=== PATIENT | female | born 1940 | race African-American/Black ===

== ENCOUNTER → 2017-03-01 | Outpatient (CLI) | payer MEDICARE, OTHER ==
[~2017-03-01] MED LIST: BUTAPT PO; CITA-30 PO; HYDR25TA4 OR; LISI-206; MET50T PO; WARF4TAB33 PO; WARF5TAB71 PO; ZOLP10TA OR
[2017-03-01 16:24] LABS: Basophils # (auto) 0 uL; Eosinophils # (auto) 0.1 uL; Hematocrit 37.9 % (36.0-46.0); Hemoglobin 12.6 g/dL (12.2-16.2); Lymphocytes # (auto) 0.9 uL; Lymphocytes % (auto) 13.5 % (10.0-50.0); Mean Corpuscular Hemoglobin 31.6 pg (28.0-32.0); Mean Corpuscular Hgb Conc. 33.4 g/dL (32.0-36.0); Mean Corpuscular Volume 94.7 fL (80.0-100.0); Mean Platelet Volume 9.2 fL (7.4-10.4); Monocytes # (auto) 0.4 uL; Monocytes % (auto) 5.9 % (0.0-12.0); Neutrophils # (auto) 5.3 uL; Neutrophils % (auto) 78.6 % (37.0-80.0); Platelet Count (auto) 205 10^3/uL (140-450); Red Cell Distribution Width 16.4 % (11.6-16.0); White Blood Cell 6.8 10^3/uL (4.4-10.8)
[2017-03-01 16:37] LABS: Albumin 2.4 g/dL (3.4-5.0); BUN/Creatinine Ratio 19.5; Calcium 8.6 mg/dL (8.5-10.1); Potassium 4.1 mmol/L (3.5-5.1); Total Protein 7.1 g/dL (6.4-8.2)
[2017-03-01 16:38] LABS: Bilirubin, Direct 0.4 mg/dL (0-0.2)
== END | disposition home or self-care (01) ==
LOC: LAB 14:34
PROVIDERS: ATTEND Internal Medicine Cardiovascular Disease
DX: I10 Essential (primary) hypertension (principal); E78.00 Pure hypercholesterolemia, unspecified; K74.1 Hepatic sclerosis; E11.9 Type 2 diabetes mellitus without complications; E03.9 Hypothyroidism, unspecified; D64.9 Anemia, unspecified; E55.9 Vitamin D deficiency, unspecified; N39.0 Urinary tract infection, site not specified
CPT/HCPCS: 36415; 80048; 80061; 80076; 83036; 84443; 85025

== ENCOUNTER 2017-03-06 12:29 | Inpatient (IN) | payer MEDICARE, MEDICAID ==
[~2017-03-06] VITALS: Ht 175.3 cm; Wt 78.0 kg
[2017-03-06] MEDS ORDERED: SODIUM CHLORIDE 0.9% 1,000 ML IVB ONE (13:04)
[2017-03-06] MEDS ORDERED: SODIUM CHLORIDE 0.9% 1,000 ML IV ONE ×2 (13:15→19:00)
[2017-03-06 13:37] LABS: Basophils # (auto) 0 uL; Basophils % (auto) 0.1 % (0.0-2.0); Eosinophils # (auto) 0.1 uL; Eosinophils % (auto) 1.3 % (0.0-7.0); Hematocrit 35.2 % (36.0-46.0); Hemoglobin 11.6 g/dL (12.2-16.2); Lymphocytes # (auto) 1.9 uL; Lymphocytes % (auto) 17.5 % (10.0-50.0); Mean Corpuscular Hemoglobin 31.5 pg (28.0-32.0); Mean Corpuscular Volume 95.5 fL (80.0-100.0); Mean Platelet Volume 8.5 fL (7.4-10.4); Monocytes % (auto) 9.1 % (0.0-12.0); Neutrophils # (auto) 7.7 uL; Platelet Count (auto) 303 10^3/uL (140-450); White Blood Cell 10.7 10^3/uL (4.4-10.8)
[2017-03-06 14:00] LABS: Albumin 1.9 g/dL (3.4-5.0); Alkaline Phosphatase 137 U/L (45-117); Anion Gap 14 (5-15); Aspartate Aminotransferase 17 U/L (15-37); BUN/Creatinine Ratio 13.5; Bilirubin, Total 0.9 mg/dL (0.2-1.0); Blood Urea Nitrogen 26 mg/dL (7-18); Carbon Dioxide 20 mmol/L (21-32); Chloride 103 mmol/L (98-107); GFR African American 33 mL/min; GFR Non-African American 27 mL/min; Glucose 170 mg/dL (74-106); Potassium 3.8 mmol/L (3.5-5.1); Sodium 137 mmol/L (136-145)
[2017-03-06 14:01] LABS: Lactic Acid w/Reflex 4.1 mmol/L (0.4-2.0)
[2017-03-06 14:09] LABS: Partial Thromboplastin Time 26.6 sec (22.64-33.71)
[2017-03-06 14:11] LABS: INR 1.23 (0.9-1.15); Prothrombin Time 13.4 sec (9.37-12.3)
[2017-03-06] MEDS ORDERED: ACETAMINOPHEN 325 MG TAB PO ONE ×2 (14:15→23:30)
[2017-03-06 14:17] LABS: REFLEX LACTIC ACID YES OR NO YES
[2017-03-06] MEDS ORDERED: AMLO10TA2 PO (14:24)
[2017-03-06] MEDS ORDERED: GABA-497 PO (14:24)
[2017-03-06] MEDS ORDERED: ZOLP10TA6 PO (14:24)
[2017-03-06] MEDS ORDERED: CLO01T PO (14:24)
[2017-03-06] MEDS ORDERED: LOSA100T27 PO (14:24)
[2017-03-06] MEDS ORDERED: MULTTAB99 PO (14:24)
[2017-03-06] MEDS ORDERED: DABI75CA3 PO (14:24)
[2017-03-06] MEDS ORDERED: AMIT50TA3 PO (14:24)
[2017-03-06] MEDS ORDERED: ATE50T PO (14:24)
[2017-03-06] MEDS ORDERED: NITROGLYCERIN 0.4 MG SL TAB SL PRN (15:30)
[2017-03-06] MEDS ORDERED: MORPHINE SULF INJ 2 MG/ML SYRINGE 1ML IV PRN (15:30)
[2017-03-06] MEDS ORDERED: VANCOMYCIN PER PHARMACY 0 MG IV SCH (15:30)
[2017-03-06] MEDS ORDERED: cefTRIAXone 1GM/50ML D5W 50 ML IV ONE (15:30)
[2017-03-06 15:52] LABS: Urine Blood Negative /uL (Negative); Urine Color Yellow (Yellow); Urine Glucose Normal (Normal); Urine Hyaline Cast MANY /lpf (0 - 2); Urine Ketone Negative (Negative); Urine Mucus FEW (None Seen); Urine Nitrite Negative (Negative); Urine RBC <1 /hpf (0 - 4); Urine Squamous Epithelial Cell FEW /hpf (<5); Urine pH 5.5 (5.0-8.0)
[2017-03-06] MEDS: MULTIPLE VITAMIN TAB PO SCH (16:05)
[2017-03-06] MEDS ORDERED: VANCOMYCIN 1GM/250ML D5W 250 ML IV ONE (16:15)
[2017-03-06 16:40] LABS: Urine Bilirubin NEGATIVE (Negative)
[2017-03-06] MEDS: SODIUM CHLORIDE 0.9% 1,000 ML IV SCH (17:13)
[2017-03-06] MEDS: APIXABAN 2.5 MG TAB PO SCH (23:02)
[2017-03-07] MEDS: SODIUM CHLORIDE 0.9% 1,000 ML IV SCH (05:21)
[2017-03-07] MEDS ORDERED: KETOROLAC TROMETH 30 MG/ML 1ML VIAL ONE (05:27)
[2017-03-07] MEDS ORDERED: KETOROLAC TROMETH 30 MG/ML 1ML VIAL IV PRN (05:30)
[2017-03-07 06:50] LABS: Basophils # (auto) 0 uL; Basophils % (auto) 0.4 % (0.0-2.0); Eosinophils # (auto) 0.1 uL; Eosinophils % (auto) 1.4 % (0.0-7.0); Hemoglobin 9.9 g/dL (12.2-16.2); Lymphocytes # (auto) 1.5 uL; Lymphocytes % (auto) 19.4 % (10.0-50.0); Mean Corpuscular Hemoglobin 31.9 pg (28.0-32.0); Mean Corpuscular Hgb Conc. 33.2 g/dL (32.0-36.0); Mean Corpuscular Volume 96.2 fL (80.0-100.0); Mean Platelet Volume 8.4 fL (7.4-10.4); Monocytes # (auto) 0.9 uL; Monocytes % (auto) 11.2 % (0.0-12.0); Neutrophils # (auto) 5.3 uL; Neutrophils % (auto) 67.6 % (37.0-80.0); Platelet Count (auto) 281 10^3/uL (140-450); Red Cell Distribution Width 18.7 % (11.6-16.0); White Blood Cell 7.9 10^3/uL (4.4-10.8)
[2017-03-07 07:04] LABS: BUN/Creatinine Ratio 16.9; Calcium 7.3 mg/dL (8.5-10.1); Potassium 3.4 mmol/L (3.5-5.1)
[2017-03-07] MEDS ORDERED: cefTRIAXone 1GM/50ML D5W 50 ML IV SCH (09:00)
[2017-03-07] MEDS: MULTIPLE VITAMIN TAB PO SCH (09:19)
[2017-03-07] MEDS: APIXABAN 2.5 MG TAB PO SCH ×2 (09:19→21:52)
[2017-03-07 10:00] VITALS: BP 118/72
[2017-03-07] MEDS: ACETAMINOPHEN 325 MG TAB PO PRN ×2 (12:06→19:44)
[2017-03-07 13:00] VITALS: BP 123/80
[2017-03-07] MEDS: SODIUM BICARBONATE 50ML VIAL 50 ML in D5W/SOD CHL 0.45%/KCL 20MEQ 1,000 ML IV SCH (13:42)
[2017-03-07] MEDS ORDERED: ALPRAZolam 0.25 MG TAB PO PRN (16:00)
[2017-03-07 16:42] VITALS: BP 168/75
[2017-03-07] MEDS ORDERED: VANCOMYCIN 1GM/250ML D5W 250 ML IV SCH (17:00)
[2017-03-07 18:30] VITALS: BP 121/68
[2017-03-07] MEDS: ATORVASTATIN 20 MG TAB PO SCH (21:52)
[2017-03-07] MEDS: HYDROcodone-ACET 5/325MG TAB PO PRN (21:57)
[2017-03-07 22:00] VITALS: BP 109/68
[2017-03-08] MEDS: SODIUM BICARBONATE 50ML VIAL 50 ML in D5W/SOD CHL 0.45%/KCL 20MEQ 1,000 ML IV SCH ×3 (00:20→13:34)
[2017-03-08 05:00] VITALS: BP 134/78
[2017-03-08] MEDS: ACETAMINOPHEN 325 MG TAB PO PRN ×2 (06:22→20:58)
[2017-03-08 08:47] LABS: Albumin 1.9 g/dL (3.4-5.0); BUN/Creatinine Ratio 17.9; Bilirubin, Total 0.5 mg/dL (0.2-1.0); Calcium 7.7 mg/dL (8.5-10.1); Phosphorus 2.4 mg/dL (2.5-4.90); Potassium 3.4 mmol/L (3.5-5.1); Total Protein 5.9 g/dL (6.4-8.2)
[2017-03-08 09:00] VITALS: BP 118/70
[2017-03-08] MEDS: HYDROcodone-ACET 5/325MG TAB PO PRN ×4 (09:22→22:38)
[2017-03-08] MEDS: APIXABAN 2.5 MG TAB PO SCH ×2 (09:23→22:38)
[2017-03-08] MEDS: MULTIPLE VITAMIN TAB PO SCH (09:23)
[2017-03-08] MEDS ORDERED: POTASSIUM CHL 20 Meq TABLET PO ONE (12:30)
[2017-03-08 17:00] VITALS: BP 136/77
[2017-03-08 22:00] VITALS: BP 142/69
[2017-03-08] MEDS: ATORVASTATIN 20 MG TAB PO SCH (22:38)
[2017-03-09 05:00] VITALS: BP 137/80
[2017-03-09] MEDS: SODIUM BICARBONATE 50ML VIAL 50 ML in D5W/SOD CHL 0.45%/KCL 20MEQ 1,000 ML IV SCH (06:00)
[2017-03-09] MEDS: ACETAMINOPHEN 325 MG TAB PO PRN ×2 (06:12→13:08)
[2017-03-09 07:45] LABS: BUN/Creatinine Ratio 14.8; Calcium 7.5 mg/dL (8.5-10.1); Potassium 3.7 mmol/L (3.5-5.1)
[2017-03-09 08:00] VITALS: BP 137/80
[2017-03-09 09:30] VITALS: BP 144/83
[2017-03-09] MEDS: MULTIPLE VITAMIN TAB PO SCH (09:46)
[2017-03-09] MEDS: APIXABAN 2.5 MG TAB PO SCH (09:46)
[2017-03-09] MEDS: HYDROcodone-ACET 5/325MG TAB PO PRN (09:47)
[2017-03-09] MEDS ORDERED: METOPROLOL TARTRATE 25 MG TAB PO SCH (10:00)
[2017-03-10 19:07] LABS: Vitamin D-2 25-Hydroxy 1.2 ng/mL (.)
== END 2017-03-09 14:25 | DRG 682 ==
LOC: ER 12:29 → TELE 12:30 → TELE-WESTW 03-07 09:11
PROVIDERS: ADMIT Internal Medicine; ATTEND Internal Medicine
DX: N17.0 Acute kidney failure with tubular necrosis (principal); E43 Unspecified severe protein-calorie malnutrition; E87.2 Acidosis; I13.0 Hypertensive heart and chronic kidney disease with heart failure and stage 1 through stage 4 chronic kidney disease, or unspecified chronic kidney disease; I50.32 Chronic diastolic (congestive) heart failure; N18.3 Chronic kidney disease, stage 3 (moderate); I48.91 Unspecified atrial fibrillation; F02.80 Dementia in other diseases classified elsewhere, unspecified severity, without behavioral disturbance, psychotic disturbance, mood disturbance, and anxiety; E86.0 Dehydration; G30.9 Alzheimer's disease, unspecified; D64.9 Anemia, unspecified; G43.909 Migraine, unspecified, not intractable, without status migrainosus; I48.0 Paroxysmal atrial fibrillation; F32.9 Major depressive disorder, single episode, unspecified; M19.90 Unspecified osteoarthritis, unspecified site; I95.9 Hypotension, unspecified; Z79.899 Other long term (current) drug therapy; Z68.25 Body mass index [BMI] 25.0-25.9, adult
CPT/HCPCS: 36415; 51702; 70450; 71010; 76775; 80048; 80053; 80202; 80307; 81001; 82306; 82570; 83605; 83735; 83970; 84100; 84156; 84300; 84484; 84550; 85025; 85610; 85730; 87040; 87077; 87086; 87186; 93005; 93306; 94761; 96361; 96365; 96375; 97116; 97163; 97530; J0696; J1885

== ENCOUNTER 2017-04-28 10:23 | Emergency (ER) | payer MEDICARE, MEDICAID ==
[~2017-04-28] VITALS: Ht 152.4 cm; Wt 45.4 kg
[~2017-04-28 10:23] MED LIST changes: +AMIT50TA3 PO; +AMLO10TA2 PO; +ATE50T PO; -BUTAPT PO; -CITA-30 PO; +CLO01T PO; +DABI75CA3 PO; +GABA-497 PO; -HYDR25TA4 OR; -LISI-206; +LOSA100T27 PO; -MET50T PO; +MULTTAB99 PO; -WARF4TAB33 PO; -WARF5TAB71 PO; +ZOLP10TA6 PO
[2017-04-28 10:25] VITALS: BP 0/0
[2017-04-28] MEDS ORDERED: CALCIUM CHLOR(10%) 100MG/ML 10ML SYRINGE IV ONE (16:47)
[2017-04-28] MEDS ORDERED: EPINEPHrine HCL 1 MG/10 ML SYRG IV ONE (16:47)
== END 2017-04-28 16:00 | disposition expired ==
LOC: ER 10:23 → EDBD 10:23 → ER 16:00
DX: I46.9 Cardiac arrest, cause unspecified (principal); I48.91 Unspecified atrial fibrillation; G30.9 Alzheimer's disease, unspecified; I12.9 Hypertensive chronic kidney disease with stage 1 through stage 4 chronic kidney disease, or unspecified chronic kidney disease; N18.9 Chronic kidney disease, unspecified; M19.90 Unspecified osteoarthritis, unspecified site; Z86.79 Personal history of other diseases of the circulatory system
CPT/HCPCS: 92950; 99285; J0171